=== PATIENT | male | born 1970 | race Caucasian/White ===

== ENCOUNTER 2023-09-27 04:13 | Day surgery (SDC) | payer BC, OTHER ==
[2023-09-20 12:26] VITALS: BMI 29.9
[2023-09-27 12:27] VITALS: RESP 18
[2023-09-27] MEDS ORDERED: ONDANSETRON 4 MG/2 ML VIAL ONE (14:43)
[2023-09-27] MEDS ORDERED: FENTANYL CITRATE/PF 50 MCG/ML VIAL ONE ×2 (14:44)
[2023-09-27] MEDS ORDERED: MIDAZOLAM HCL 2 MG/2 ML SINGLE DOSE VIAL ONE (14:44)
[2023-09-27] MEDS ORDERED: KETOROLAC TROMETHAMINE 30 MG/1 ML VIAL ONE (15:08)
[2023-09-27] MEDS ORDERED: PROPOFOL 20 ML ONE (15:09)
[2023-09-27 16:08] VITALS: BP 137/92; PULSE 82; TEMP 97.5
== END 2023-09-27 16:15 | disposition home or self-care (01) ==
LOC: JASU-SURG 04:13
PROVIDERS: ATTEND Urology
PROC: 0TF4XZZ Fragmentation in Left Kidney Pelvis, External Approach (ICD-10-PCS; principal; 2023-09-27 13:30)
DX: N20.0 Calculus of kidney (principal)